=== PATIENT | female | born 1985 | race American Indian/Alaskan Native ===

== ENCOUNTER 2021-01-29 21:28 | Emergency (ER) | payer SELFPAY ==
--- NOTE | 2021-01-29 22:58 | Emergency Department Report ---
HPI - General Chief Complaint: Psych Time Seen by Provider: 01/29/21 22:30 - HPI HPI: 35-year-old -[place] female presents to the emergency department via EMS with complaints of lower abdominal cramping pain, vaginal spotting, and a mental health evaluation. She says that the lower abdominal cramping pain has been going on intermittently over the past month. The patient thinks that she has having an abnormal menstrual cycle as her last cycle was on January 23 and lasted for 4 days. She then had 2 or 3 days of reprieve and it started again yesterday, but very mild. She denies any fever, vaginal discharge, dysuria, constipation, diarrhea, back pain. Patient also appears to be here for a mental health evaluation. She has a history of depression and bipolar disorder. She is not currently on any medication for it. The patient has tangential and rambling thoughts and appears disjointed. She starts telling me that she was staying in a AirBnB until the railway head tender of this residents came back today and told her that the house had not been paid for. Then she starts talking about trying to distract the railway head tender's daughter with toys. Then she starts talking about how her best friend in [place] was going to give her "in advance on one of my loans" and he was going to pay for a plane ticket for her. Apparently she went to the airport to picker feeder this ticket but said that there was none there for her. When asked about hallucinations the patient says that she is having a "spiritual attack." When asked about suicidal ideations the patient says that she is not necessarily suicidal but "I would have no problem putting myself in harm's way." ED Past Medical Hx - Past Medical History Previous Medical History?: Yes Hx Psychiatric Treatment: (depression) ED Review of Systems ROS: Stated complaint: MED REFILL/MH/ABD CRAMPS Other details as noted in HPI Comment: All other systems reviewed and negative Constitutional: denies: chills, fever Eyes: denies: eye pain, vision change ENT: denies: ear pain, throat pain Respiratory: denies: cough, shortness of breath Cardiovascular: denies: chest pain, palpitations Gastrointestinal: abdominal pain. denies: vomiting Genitourinary: abnormal menses. denies: dysuria, discharge Musculoskeletal: denies: back pain, arthralgia Skin: denies: rash, lesions Neurological: denies: headache, weakness Physical Exam - Physical Exam Physical Exam: GENERAL: The patient is well-developed well-nourished. HENT: Normocephalic. Atraumatic. Patient has moist mucous membranes. EYES: Extraocular motions are intact. NECK: Supple. Trachea is midline. CHEST/LUNGS: Clear to auscultation. There is no respiratory distress noted. HEART/CARDIOVASCULAR: Regular. There is no tachycardia. There is no murmur. ABDOMEN: Abdomen is soft, nontender. Patient has normal bowel sounds. There is no abdominal distention. SKIN: Skin is warm and dry. NEURO: The patient is awake, alert, and oriented. The patient is cooperative. No slurred speech. MUSCULOSKELETAL: There is no tenderness or deformity. There is no limitation range of motion. ED Medical Decision Making - Lab Data Result diagrams: 01/29/21 23:24 01/29/21 23:24 Lab Results 01/29/21 01/29/21 01/29/21 Range/Units 23:24 23:24 23:24 WBC 6.2 (4.5-11.0) K/mm3 RBC 4.35 (3.65-5.03) M/mm3 Hgb 10.2 (10.1-14.3) gm/dl Hct 32.3 (30.3-42.9) % MCV 74 L (79-97) fl MCH 23 L (28-32) pg MCHC 31 (30-34) % RDW 19.7 H (13.2-15.2) % Plt Count 368 (140-440) K/mm3 Lymph % (Auto) 39.1 H (13.4-35.0) % [place] % (Auto) 7.3 (0.0-7.3) % Eos % (Auto) 0.6 (0.0-4.3) % Baso % (Auto) 0.7 (0.0-1.8) % Lymph # (Auto) 2.4 (1.2-5.4) K/mm3 [place] # (Auto) 0.5 (0.0-0.8) K/mm3 Eos # (Auto) 0.0 (0.0-0.4) K/mm3 Baso # (Auto) 0.0 (0.0-0.1) K/mm3 Seg Neutrophils % 52.3 (40.0-70.0) % Seg Neutrophils # 3.2 (1.8-7.7) K/mm3 Sodium 140 (137-145) mmol/L Potassium 3.7 (3.6-5.0) mmol/L Chloride 103.7 (98-107) mmol/L Carbon Dioxide 24 (22-30) mmol/L Anion Gap 16 mmol/L BUN 6 L (7-17) mg/dL Creatinine 1.0 (0.6-1.2) mg/dL Estimated GFR > 60 ml/min BUN/Creatinine Ratio 6 % Glucose 90 (65-100) mg/dL Calcium 9.0 (8.4-10.2) mg/dL Total Bilirubin 0.60 (0.1-1.2) mg/dL AST 15 (5-40) units/L ALT 9 (7-56) units/L Alkaline Phosphatase 53 (35-129) units/L Total Protein 7.2 (6.3-8.2) g/dL Albumin 4.1 (3.9-5) g/dL Albumin/Globulin Ratio 1.3 % HCG, Qual (Negative) Plasma/Serum Alcohol < 0.01 (0-0.07) % 01/29/21 Range/Units 23:24 WBC (4.5-11.0) K/mm3 RBC (3.65-5.03) M/mm3 Hgb (10.1-14.3) gm/dl Hct (30.3-42.9) % MCV (79-97) fl MCH (28-32) pg MCHC (30-34) % RDW (13.2-15.2) % Plt Count (140-440) K/mm3 Lymph % (Auto) (13.4-35.0) % [place] % (Auto) (0.0-7.3) % Eos % (Auto) (0.0-4.3) % Baso % (Auto) (0.0-1.8) % Lymph # (Auto) (1.2-5.4) K/mm3 [place] # (Auto) (0.0-0.8) K/mm3 Eos # (Auto) (0.0-0.4) K/mm3 Baso # (Auto) (0.0-0.1) K/mm3 Seg Neutrophils % (40.0-70.0) % Seg Neutrophils # (1.8-7.7) K/mm3 Sodium (137-145) mmol/L Potassium (3.6-5.0) mmol/L Chloride (98-107) mmol/L Carbon Dioxide (22-30) mmol/L Anion Gap mmol/L BUN (7-17) mg/dL Creatinine (0.6-1.2) mg/dL Estimated GFR ml/min BUN/Creatinine Ratio % Glucose (65-100) mg/dL Calcium (8.4-10.2) mg/dL Total Bilirubin (0.1-1.2) mg/dL AST (5-40) units/L ALT (7-56) units/L Alkaline Phosphatase (35-129) units/L Total Protein (6.3-8.2) g/dL Albumin (3.9-5) g/dL Albumin/Globulin Ratio % HCG, Qual Negative (Negative) Plasma/Serum Alcohol (0-0.07) % - Radiology Data Radiology results: image reviewed interpreted by me: Abdominal x-ray shows nonspecific nonobstructive bowel gas. No free air. - Medical Decision Making Patient complains of some lower abdominal pain and vaginal spotting. On exami nation there is no tenderness to palpation of the abdomen. The abdomen is soft, nondistended and nontoxic in appearance. X-ray of the abdomen shows nonspecific nonobstructive bowel gas, and no free air. Labs have been mostly unremarkable thus far including CBC, metabolic panel, blood alcohol level, and the patient is not . We are still waiting for a urine sample for urinalysis and UDS. The patient also appears to present for a mental health evaluation. She has a history of bipolar disorder and depression. She admits to some nonspecific hallucinations. She does not overtly say that she is suicidal, but admits that she could see herself putting herself in harm's way. The patient also has rambling tangential thoughts and appears disjointed. Patient has been made a ED hold and will be evaluated in the morning by the psychiatric team to assist with disposition. Vital signs have been reassuring throughout her ED course thus far including being afebrile. The decision is made that the patient needs to be a 1013 and requires inpatient stabilization, I consider this patient to be medically cleared for psychiatric placement. Critical Care Time: No Critical care attestation.: If time is entered above; I have spent that time in minutes in the direct care of this critically ill patient, excluding procedure time. ED Disposition Clinical Impression: Bipolar disorder, Acute psychosis Disposition: [address] [place] [address] Is pt being admited?: No Condition: Stable Additional Instructions: Professional and Agency Contacts To help [facility] Cr[facility] (19/11) MD Crisis Line: Suicide Prevention Line: Crisis Text Line: Text START to 869221 Emergency: 911 Outpatient COMM[facility] Behavioral Health Resources: [facility]: [facility] [address] [place], [place] [address] [facility] [address] [place] [address] Saturday thru Saturday - 8am - 5pm Call to schedule an assessment for mental health and substance abuse programs [facility] Address: [address] [place] [address] Saturday thru Saturday- 7am-2pm [facility] Address: [address] [place] [address] Saturday thru Saturday: 8:30AM-5PM
[2021-01-29 23:51] LABS: Basophils % (Auto) 0.7 % (0.0-1.8); Eosinophils % (Auto) 0.6 % (0.0-4.3); Hematocrit 32.3 % (30.3-42.9); Hemoglobin 10.2 gm/dl (10.1-14.3); Lymphocytes # (Auto) 2.4 K/mm3 (1.2-5.4); Lymphocytes % (Auto) 39.1 % (13.4-35.0); Mean Corpuscular HGB Conc 31 % (30-34); Mean Corpuscular Volume 74 fl (79-97); Monocytes # (Auto) 0.5 K/mm3 (0.0-0.8); Monocytes % (Auto) 7.3 % (0.0-7.3); Platelet Count 368 K/mm3 (140-440); Red Blood Count 4.35 M/mm3 (3.65-5.03); Red Cell Distribution Width 19.7 % (13.2-15.2)
[2021-01-30 00:02] LABS: Alanine Aminotransferase 9 units/L (7-56); Albumin 4.1 g/dL (3.9-5); BUN/Creatinine Ratio 6; Blood Urea Nitrogen 6 mg/dL (7-17); Hemolysis Index 0
--- NOTE | 2021-01-30 01:08 | XRay Report ---
Abdomen 3 views INDICATION: Abdominal pain IMPRESSION: Mild stool burden within the proximal colon. Nonobstructive bowel gas pattern. Signer Name: Adrian Saenz MD Signed: 01/30/2021 1:04 AM Workstation Name: [id number]
--- NOTE | 2021-01-30 10:46 | Consultation ---
History of Present Illness - Reason for Consult Consult date: 01/30/21 Reason for consult: mental health evaluation - History of Present Psychiatric Illness Per ED Note: 35-year-old -Danish female presents to the emergency department via EMS with complaints of lower abdominal cramping pain, vaginal spotting, and a mental health evaluation. She says that the lower abdominal cramping pain has been going on intermittently over the past month. The patient thinks that she has having an abnormal menstrual cycle as her last cycle was on January 23 and lasted for 4 days. She then had 2 or 3 days of reprieve and it started again yesterday, but very mild. She denies any fever, vaginal discharge, dysuria, constipation, diarrhea, back pain. Patient also appears to be here for a mental health evaluation. She has a history of depression and bipolar disorder. She is not currently on any medication for it. The patient has tangential and rambling thoughts and appears disjointed. She starts telling me that she was staying in a AirBnB until the associate professor plant pathology of this residents came back today and told her that the house had not been paid for. Then she starts talking about trying to distract the associate professor plant pathology's daughter with toys. Then she starts talking about how her best friend in [place] was going to give her "in advance on one of my loans" and he was going to pay for a plane ticket for her. Apparently she went to the airport to brick picker this ticket but said that there was none there for her. When asked about hallucinations the patient says that she is having a "spiritual attack." When asked about suicidal ideations the patient says that she is not necessarily suicidal but "I would have no problem putting myself in harm's way." Drea Shaffer is a 35 year old female with a history of Bipolar disorder who presents to the ED for mental health evaluation. In my interview with the patient, she presents with flight of ideas , confusion and paranoia. She reports non compliant with psychotropic medications; last took meds about 4 months ago. The patient states " I must be having an episode, I feel like I'm under spiritual attack. " The patient reports that she is homeless with no finances. She states " I feel like I'm in danger." The patient denies any current suicidal ideation and denies hallucinations. Psych History Diagnoses: Bipolar Suicide attempts or Self-harm behavior:Yes Prior psychiatric hospitalizations: Yes Substance Abuse history:Yes Previous psychiatric medications tried:Sertraline, Abilify Outpatient treatment: Denies PAST MEDICAL HISTORY: none reported Family Psychiatric History: None reported or documented SOCIAL HISTORY Marital Status: Single Living Arrangements: homeless Employment Status:unemployed Access to guns/weapons: Denies Education: Some college History of Abuse: Denies Legal History: None reported REVIEW OF SYSTEMS Constitutional: Negative for weight loss ENT: Negative for stridor Respiratory: Negative for cough or hemoptysis All other systems reviewed and are negative MENTAL STATUS EXAMINATION General Appearance and Behavior: Age appropriate, good hygiene, wearing eugenia ropriate clothes, sleeping, cooperative Cooperation: cooperative Psychomotor Behavior: unremarkable and within normal limits Mood: Confused Affect and affective range: congruent with mood Thought Process:Flight of ideas Thought Content: Not Suicidal Speech: Normal volume, Regular rate and rhythm, Suicidal Ideation: Denies Homicidal Ideation:Denies Hallucinations: Denies Delusions: None elicited Impulse Control: Questionable Insight and Judgment: Limited insight and poor judgment, Memory: Normal, Attention: Normal Orientation: Alert, oriented Assessment and Plan (1)Bipolar disorder unspecified- F31.9 Treatment plan Continue 1013 Start Seroquel 25mg po Bid, Start Depakote 250mg po BID Risks, benefits and alternatives of medications discussed with the patient, questions answered and consent obtained from patient. PSYCHOTHERAPY: Supportive psychotherapy provided MEDICAL: Per primary team DELIRIUM PRECAUTIONS: Please re-orient patient frequently, keep lights on during the day, and minimize benzodiazepines and opiates as these medications could worsen patient's confusion. ASSISTANT NEWS DIRECTOR: Defer to primary Disposition: Recommend acute psychiatric inpatient treatment. Will follow. Thank you for the consult. Please contact with any questions and/or concerns. Case staffed with Dr. Sullivan Medications and Allergies Allergies Medications and Allergies Allergies Allergy/AdvReac Type Severity Reaction Status Date / Time Sulfa (Sulfonamide Allergy Rash Verified 01/29/21 22:25 Antibiotics) Mental Status Exam - Vital signs Last Vital Signs Temp 97.6 F 01/30/21 08:13 Pulse 62 01/30/21 08:13 Resp 20 01/30/21 08:13 BP 111/80 01/30/21 08:13 Pulse Ox 100 01/30/21 08:13 Results Result Diagrams: 01/29/21 23:24 01/29/21 23:24 Abnormal lab results 01/29/21 01/29/21 Range/Units 23:24 23:24 MCV 74 L (79-97) fl MCH 23 L (28-32) pg RDW 19.7 H (13.2-15.2) % Lymph % (Auto) 39.1 H (13.4-35.0) % BUN 6 L (7-17) mg/dL All other labs normal.
--- NOTE | 2021-01-30 10:47 | Event Note ---
Date: 01/30/21 S: No events reported overnight O: Vital Signs - 24 hr 01/29/21 01/29/21 01/30/21 22:58 23:02 01:55 Temperature 98.5 F 97.6 F Pulse Rate 64 65 Respiratory 16 16 Rate Blood Pressure 116/70 112/51 [Right] O2 Sat by Pulse 97 97 98 Oximetry 01/30/21 08:13 Temperature 97.6 F Pulse Rate 62 Respiratory 20 Rate Blood Pressure 111/80 [Right] O2 Sat by Pulse 100 Oximetry A: Psychosis P: Awaiting psych eval
[2021-01-30] MEDS: QUEtiapine 25 MG TAB PO SCH ×2 (11:17→22:23)
[2021-01-30] MEDS: DIVALPROEX DR 250 MG TAB PO SCH ×2 (11:17→22:22)
[2021-01-30 13:25] LABS: Bilirubin,Urine NEG (Negative); Blood,Urine NEG (Negative); Color,Urine Yellow (Yellow); Mucus,Urine FEW /HPF; Protein,Urine <15 mg/dL mg/dL (Negative); Urobilinogen,Urine < 2.0 mg/dL (<2.0)
[2021-01-30 13:32] LABS: Amphetamine Screen,Urine Negative; Benzodiazepines Screen,Urine Negative; Cocaine Screen,Urine Negative; Methadone Screen,Urine Negative; Opiate Screen,Urine Negative
[2021-01-30 14:20] LABS: Cannabinoid Screen,Urine Positive
[2021-01-31] MEDS: DIVALPROEX DR 250 MG TAB PO SCH (09:44)
[2021-01-31] MEDS: QUEtiapine 25 MG TAB PO SCH (09:44)
[2021-01-31 09:50] VITALS: BP 120/65
--- NOTE | 2021-01-31 13:02 | Progress Note ---
Subjective - Reason for Consult Consult date: 01/31/21 Reason for consult: mental health eval - Chief Complaint Chief complaint: The patient was seen this morning, she reports doing well but complaining about her medications. Per nurse the patient is refusing psychotropic medications. The patient denies having suicidal/homicidal ideations and denies hallucinations. REVIEW OF SYSTEMS Constitutional: Negative for weight loss ENT: Negative for stridor Respiratory: Negative for cough or hemoptysis All other systems reviewed and are negative MENTAL STATUS EXAMINATION General Appearance and Behavior: Age appropriate, good hygiene, wearing appropriate clothes, sleeping, cooperative Cooperation: cooperative Psychomotor Behavior: unremarkable and within normal limits Mood: Confused Affect and affective range: congruent with mood Thought Process:Flight of ideas Thought Content: Not Suicidal Speech: Normal volume, Regular rate and rhythm, Suicidal Ideation: Denies Homicidal Ideation:Denies Hallucinations: Denies Delusions: None elicited Impulse Control: Questionable Insight and Judgment: Limited insight and poor judgment, Memory: Normal, Attention: Normal Orientation: Alert, oriented Assessment and Plan (1)Bipolar disorder unspecified- F31.9 Treatment plan Discontinue 1013 Continue Home meds Risks, benefits and alternatives of medications discussed with the patient, questions answered and consent obtained from patient. PSYCHOTHERAPY: Supportive psychotherapy provided MEDICAL: Per primary team DELIRIUM PRECAUTIONS: Please re-orient patient frequently, keep lights on during the day, and minimize benzodiazepines and opiates as these medications could worsen patient's confusion. RESEARCH GENETICIST: Defer to primary Disposition: Do not recommend acute psychiatric inpatient treatment. ecological risk assessor will provide patient with out patient resources. Will sign off. Thank you for the consult. Please contact with any questions and/or concerns. Case staffed with Dr. Sullivan Medications and Allergies Mental Status Exam - Vital signs Last Vital Signs Temp 97.5 F L 01/31/21 09:49 Pulse 85 01/31/21 09:49 Resp 18 01/31/21 09:49 BP 120/65 01/31/21 09:49 Pulse Ox 98 01/31/21 09:49
== END 2021-01-31 14:16 | disposition home or self-care (01) ==
LOC: ED 21:28 → EEVIPCON 21:28 → ED 01-31 14:16
DX: F31.9 Bipolar disorder, unspecified (principal); F23 Brief psychotic disorder; Z20.822 Contact with and (suspected) exposure to COVID-19; R10.30 Lower abdominal pain, unspecified; Z88.2 Allergy status to sulfonamides; Z79.899 Other long term (current) drug therapy
CPT/HCPCS: 36415; 74019; 80053; 80307; 81001; 84703; 85025; 87086; 99284; U0003; 80320; G0480